=== PATIENT | female | born 1985 | race American Indian/Alaskan Native ===

== ENCOUNTER 2025-04-11 11:32 | Emergency (ER) | payer MEDICAID, SELFPAY ==
--- NOTE | 2025-04-11 11:38 | XR_ITS ---
EXAMINATION: Ankle, right 3 views . Technique: Ankle AP, oblique, lateral 3 views Date and time of exam: April 11, 2025 1203 hours INDICATIONS: Ankle injury 2 days ago with ankle pain. FINDINGS: Ankle dislocation, distal articulating surface of the tibia displaced anteriorly relative to the dome the talus Comminuted displaced angulated fibular shaft fracture, at least 7 mm offset at the main fracture site Posterior malleolar fracture which is poorly visualized Talus calcaneus navicular and cuboid appear intact IMPRESSION: Ankle fractures with dislocation, consider CT scan ankle follow-up to assess full extent of ankle fractures
[2025-04-11 12:00] VITALS: BP 137/86; PULSE 88; RESP 18; TEMP 36.8; O2SAT 97; BMI 33.5
--- NOTE | 2025-04-11 13:28 | PD.EDANKLE ---
Lower Extremity Injury RME/HPI General Chief Complaint: Ankle/Foot Injury Stated Complaint: Rolled right ankle last night Time Seen by Provider: 04/11/25 11:47 Arrival date/time: 04/11/25 11:32 Limitations: no limitations RME / HPI RME / HPI Narrative: 39 year old female with no stated medical history presents to the ED for evaluation of right ankle pain following a ground level fall occurring last night at 10:00 PM. States he was walking in her yard when she rolled her ankle, followed by pain that has remained constant since. Described as sharp in sensation that is located most to the ankle area that shoots up with movements. No other injuries or complaints reported. Related Data Home Medications ?Medication ?Instructions ?Recorded ?Confirmed acetaminophen 325 mg capsule 500 mg PO Q6H pain 10/24/19 11/06/19 (Tylenol) diphenhydramine HCl 25 mg capsule 1 tab PO HS 10/24/19 11/06/19 (Benadryl) famotidine 20 mg tablet (Pepcid) 1 tab PO QDAY 10/24/19 11/06/19 vitamins-iron fumarate 27 1 tab PO QDAY 10/24/19 11/06/19 mg iron-folic acid 0.8 mg tablet ( Vitamin) Previous Rx's ?Medication ?Instructions ?Recorded hydrocodone 5 mg-acetaminophen 325 1 tab PO Q6H PRN pain #7 tabs 02/16/20 mg tablet ([place]) hydrocodone 5 mg-acetaminophen 325 1 tab PO Q6H PRN pain #7 tabs 02/16/20 mg tablet ([place]) ibuprofen 600 mg tablet 600 mg PO Q6H PRN pain #20 tabs 11/14/19 hydrocodone 5 mg-acetaminophen 325 1 tab PO Q6H PRN pain 4 days #14 04/11/25 mg tablet tabs Allergies Allergy/AdvReac Type Severity Reaction Status Date / Time Cephalosporins Allergy Intermediate Hives Verified 04/11/25 11:36 Sulfa (Sulfonamide Allergy Intermediate Hives Verified 04/11/25 11:36 Antibiotics) codeine AdvReac Mild HIVES Verified 04/11/25 11:36 Review of Systems Review of Systems Systems Reviewed: All systems reviewed, normal except as documented Past Medical History Past Medical History NEUROLOGIC: Negative Neurological Disorders CARDIAC: Negative Cardiac Disorders GENITOURINARY: Negative Genitourinary Disorders or Renal Disease MUSCULOSKELETAL: Negative Musculoskeletal Disorders ENDOCRINE: Negative Endocrine Disorders Family History FAMILY HISTORY: Negative Family Psychiatric Problems, Family Respiratory Disorders, Family Cardiac Disorders, Family Gastrointestinal Problems, Family Cancer, Family Surgery or Family Anesthesia Reaction Surgical History SURGICAL: Positive Section (4) Social History SMOKING STATUS: Never smoker ED Exam General Limitations: Present no limitations General appearance: Present alert and in no apparent distress Head Head exam: Present atraumatic, normocephalic and normal inspection Eye Eye exam: Present normal appearance, PERRL and EOMI ENT ENT exam: Present normal exam, normal oropharynx and mucous membranes moist Neck Neck exam: Present normal inspection, full ROM and trachea midline Chest Chest inspection: Present normal inspection and symmetric chest wall rise Respiratory Respiratory exam: Present normal lung sounds bilaterally Cardiovascular Cardiovascular exam: Present regular rate, normal rhythm and normal heart sounds Abdominal Exam Abdominal exam: Present soft and normal bowel sounds Extremities Exam Extremities exam: Present other (Deformity and swelling to the right ankle and foot with ecchymosis, normal sensation and normal motor, capillary refill on the right foot is 3-4 seconds, capillary refill on the left foot is <2 seconds) Back Exam Back exam: Present normal inspection and full ROM Neurological Exam Neurological exam: Present alert, oriented X3 and CN II-XII intact Psychiatric Psychiatric exam: Present normal affect and normal mood Skin Skin exam: Present warm, dry, intact and normal color Course Course Course Narrative: 1330: Ortho Dr. Gonzalez called and no answer. Left a voicemail. 1428: Ortho Dr. Gonzalez at bedside to perform ankle reduction. Please refer to his progress note for procedure details. Quality Measures none Orders Category Date Time Status Quality Control Auditor NOW Care 04/11/25 13:34 Active Conscious Sedation [RT Stand By for Procedure] NOW Care 04/11/25 14:09 Active Continuous Pulse Oximetry NOW Care 04/11/25 13:34 Completed IV [Insert IV] NOW Care 04/11/25 13:[address] ankle RT wo con Stat Exams 04/11/25 13:36 Completed XR ankle RT 2V Stat Exams 04/11/25 14:14 Completed XR ankle comp RT min 3V Stat Exams 04/11/25 11:38 Completed XR ankle comp RT min 3V Stat Exams 04/11/25 14:38 Completed CBC Stat Lab 04/11/25 13:41 Completed CMP [Comprehensive Metabolic Panel] Stat Lab 04/11/25 13:41 Completed INR [Prothrombin Time with INR] Stat Lab 04/11/25 13:41 Completed PTT [Partial Thromboplastin Time] Stat Lab 04/11/25 13:41 Completed Type and Screen Stat Lab 04/11/25 13:41 Completed Acetaminophen Ivpb [Ofirmev Inj] Med 04/11/25 13:34 Discontinued 1,000 mg in 100 ml IV NOW Ondansetron Inj [Zofran Inj] Med 04/11/25 13:34 Discontinued 4 mg IVP X1 ONE Propofol Inj [Diprivan Inj] Med 04/11/25 14:29 Discontinued 100 mg IV X1 ONE Propofol Inj [Diprivan Inj] Med 04/11/25 14:09 Discontinued 171 mg IV X1 ONE Propofol Inj [Diprivan Inj] Med 04/11/25 14:18 Discontinued 200 mg IV .STK-MED ONE Propofol Inj [Diprivan Inj] Med 04/11/25 14:29 Discontinued 200 mg IV X1 ONE Sodium Chloride 0.9% 1000 ml [Ns] 1,000 ml Med 04/11/25 14:10 Discontinued IV 999 mls/hr fentaNYL INJ [Sublimaze Inj] Med 04/11/25 13:34 Discontinued 50 mcg IVP X1 ONE Vital Signs Vital signs: Vital Signs Temperature 98.2 F 04/11/25 12:00 Pulse Rate 88 04/11/25 12:00 Respiratory Rate 18 04/11/25 12:00 Blood Pressure 137/86 H 04/11/25 12:00 Pulse Oximetry (%) 97 04/11/25 12:00 Oxygen Delivery Method Room Air 04/11/25 12:00 Pulse ox is 97% on room air which is adequate. Extremity Injury, Lower MDM Narrative MDM Narrative:: Penny Murphy am scribing for and in the presence of Dr. Lu. Patient data External records reviewed:: [facility] previous records (I reviewed H&P on 11/12/2019) Clinical information provided by:: patient Social determinants that could affect healthcare access:: none Patient has the following chronic illnesses:: None How is presenting disease/condition affected by chronic disease/condition?: no chronic disease Evaluation data The following diagnostics were reviewed and interpreted by me:: lab results and radiology exam(s) Lab and/or radiology exams considered but not ordered:: None Interpretation Summary: Ordering Physician: Luan Lu MD Date of Service: 04/11/25 Procedure(s): XR ankle comp RT min 3V Accession Number(s): [id number] cc: Alexander Mccann MD; CLARENCE COURTNEY; Luan Lu MD~ EXAMINATION: Ankle, right 3 views . Technique: Ankle AP, oblique, lateral 3 views Date and time of exam: April 11, 2025 1203 hours INDICATIONS: Ankle injury 2 days ago with ankle pain. FINDINGS: Ankle dislocation, distal articulating surface of the tibia displaced anteriorly relative to the dome the talus Comminuted displaced angulated fibular shaft fracture, at least 7 mm offset at the main fracture site Posterior malleolar fracture which is poorly visualized Talus calcaneus navicular and cuboid appear intact IMPRESSION: Ankle fractures with dislocation, consider CT scan ankle follow-up to assess full extent of ankle fractures Dictated By: Alexander Mccann MD Signed By: <Electronically signed by Alexander Mccann MD in OV> 04/11/25 1221 Medications / Prescriptions Medications or Prescriptions considered but not ordered:: None Medication administrations:: Medication Administration History Discontinued Medications Fentanyl Citrate (Fentanyl Cit Inj 50 Mcg/Ml Amp 2ml) 50 mcg IVP X1 ONE Stop: 04/11/25 13:35 Last Admin: 04/11/25 13:51 Dose: 50 mcg Documented By: MARY JO Acetaminophen (Ofirmev Inj) 1,000 mg in 100 mls @ 250 mls/hr IV NOW ONE Stop: 04/11/25 13:57 Last Infusion: 04/11/25 14:40 Dose: Infused Documented By: Admin: 04/11/25 13:51 Dose: 250 mls/hr Documented By: VG Sodium Chloride (Ns) 1,000 mls @ 999 mls/hr IV .Q1H1M ONE Stop: 04/11/25 15:10 Last Infusion: 04/11/25 15:38 Dose: Infused Documented By: Admin: 04/11/25 14:15 Dose: 999 mls/hr Documented By: VG Ondansetron HCl (Ondansetron Inj 2 Mg/Ml Inj 2 Ml) 4 mg IVP X1 ONE; Protocol Stop: 04/11/25 13:35 Last Admin: 04/11/25 13:50 Dose: 4 mg Documented By: VG Propofol (Propofol Inj 10 Mg/Ml Vial 20 Ml) 171 mg 2 mg/kg (171 mg) IV X1 ONE Stop: 04/11/25 14:10 Last Admin: 04/11/25 14:30 Dose: Not Given Documented By: VG Non-Admin Reason: Discontinued Propofol (Propofol Inj 10 Mg/Ml Vial 20 Ml) Confirm Administered Dose 200 mg IV .STK-MED ONE Stop: 04/11/25 14:19 Last Admin: 04/11/25 14:30 Dose: Not Given Documented By: VG Non-Admin Reason: Duplicate Medication on eMAR Propofol (Propofol Inj 10 Mg/Ml Vial 20 Ml) 200 mg IV X1 ONE Stop: 04/11/25 14:30 Last Admin: 04/11/25 14:20 Dose: 200 mg Documented By: VG Comments: MED PUSHED IN INCREMENTS BY DR. LU 85MG PUSHED 85MG PUSHED 30MG PUSHED Propofol (Propofol Inj 10 Mg/Ml Vial 20 Ml) 100 mg IV X1 ONE Stop: 04/11/25 14:30 Last Admin: 04/11/25 14:25 Dose: 100 mg Documented By: MARY JO Comments: MED PUSHED BY DR LU See above Consultations Consultation(s) initiated? (list below): Yes Consultation #1 (Physician, Specialty, Details): I spoke with ortho Dr. Gonzalez. Discussed HPI, pmhx, and radiology results. states he will come down and reduce the ankle in the ED. Time: 14:08 Diagnosis Most likely diagnosis given after review of the tests above:: Closed pilon fracture Admission Indicated Admission indicated?: not indicated Admission Request Was there a request for admission?: No Disposition Plan Disposition Plan: Discharge Discharge Attestation Discharge Attestation: The patient and all family members were given an opportunity to ask questions and understood the discharge instructions. Discharge instructions specifically effects, indications for sooner follow up or return to the emergency department, and the expected course of current diagnosis. Patient condition: Stable Discharge Plan Plan Patient Disposition: HOME (Self Care) Discharge Disposition comment: Stable for discharge home Patient condition on transfer: Stable Prescriptions/Referrals Prescriptions/Med Rec: New hydrocodone-acetaminophen 5-325 mg tablet 1 tab PO Q6H MDD 4 tabs PRN (Reason: pain) 4 Days Qty: 14 0RF No Action hydrocodone-acetaminophen [[place]] 5-325 mg tablet 1 tab PO Q6H MDD 4 PRN (Reason: pain) Qty: 7 0RF ibuprofen 600 mg tablet 600 mg PO Q6H MDD 6 PRN (Reason: pain) Qty: 20 0RF hydrocodone-acetaminophen [[place]] 5-325 mg tablet 1 tab PO Q6H MDD 4 PRN (Reason: pain) Qty: 7 0RF famotidine [Pepcid] 20 mg Tablet 1 tab PO QDAY diphenhydramine HCl [Benadryl] 25 mg Capsule 1 tab PO HS Vitamin 27 mg iron- 0.8 mg Tablet 1 tab PO QDAY acetaminophen [Tylenol] 325 mg Capsule 500 mg PO Q6H Referrals: [facility] fracture clinic [Other] - In 1 week ([email or web address] Right sided pilon fracture) [facility] [Provider Group] - In 1 week (Patient has a right pilon fracture. She needs referral to an orthopedic surgeon) Clarence Courtney PA-C [Primary Care Provider] - In 1 week Problem List Clinical Impression: Closed pilon fracture Patient/Caregiver Discharge Instructions Discharge Activity: activity as tolerated Education Materials: Pilon Fracture of the Ankle, ED Fracture, Lower Extremity Additional Instructions: You have a fracture called a pilon fracture of your right ankle. You will need to see a specialist, which is called an orthopedic surgeon. This is a bone surgeon. You have two options. You can either call the fresh fracture clinic in [place] and make a follow-up appointment. Your second option is you can go to your primary care doctor or the [facility] and ask for referral to an orthopedic surgeon. You cannot drive or operate heavy machinery after taking the hydrocodone/acetaminophen. This medicine is best taken before you go to bed. It may make you feel little dizzy Please return to the ER if you have any worsening or any further medical problems. Otherwise you should follow-up with your primary care doctor within the next several days Print Language: Argentine Stand Alone Forms: Sarah Award Info., Patient Portal Info Letter
--- NOTE | 2025-04-11 13:36 | XR_ITS ---
Examination: CT right ankle, without contrast. 2-D sagittal reconstructions. 2-D coronal reconstructions. 3-D reconstructions. Date and time of exam:April 11, 2025 1527 hours INDICATIONS: Patient fell today with into the ankle, ankle pain CTDI: vol (mGy):5.04 DLP: (mGycm):110 Technique: Multiple 1.25 mm axial sections of the right ankle without intravenous contrast have been obtained. 2-D sagittal and coronal reconstructions have been obtained. 3-D reconstructions have been obtained. Low dose protocols were performed. One or more of the following dose reduction techniques were used; automated exposure control, adjustment of the mA and/or KV according to patient size, use of iterative reconstruction technique. Findings: Comminuted fracture distal fibula, on the lateral view 9 mm separation of the main fracture fragments Fracture distal tibia extending to the articulating surface of the tibia, coronal image 43 with mildly displaced posterior malleolar fracture fragment, 24 mm Fractures off the distal lateral margin of the tibia, coronal image 34 through 30 with displaced fracture fragments Nondisplaced medial malleolar fracture, comminuted, coronal image 39 Mild widening at the tibiotalar joint IMPRESSION: Trimalleolar fractures as above
[2025-04-11] MEDS: ONDANSETRON INJ 2 MG/ML INJ 2 ML 4 MG IVP (13:50)
[2025-04-11] MEDS: fentaNYL CIT INJ 50 mCg/ML AMP 2ML IVP (13:51)
[2025-04-11] MEDS: ACETAMINOPHEN IVPB 1,000 MG/100 ML VIAL 250 MG IV (13:51)
[2025-04-11 13:53] VITALS: PULSE 89
[2025-04-11 13:55] LABS: Basophils # (Auto) 0.0 Thou/mm3 (0.0-0.2); Basophils % (Auto) 0 % (0-2.5); Eosinophils # (Auto) 0.0 Thou/mm3 (0.0-0.5); Eosinophils % (Auto) 0 % (0-10); Hematocrit 39.3 % (36.0-46.0); Hemoglobin 13.9 g/dL (12.0-16.0); Immature Granulocytes Auto 0.05 Thou/mm3 (0.00-0.00); Lymphocytes # (Auto) 1.2 Thou/mm3 (1.0-4.8); Lymphocytes % (Auto) 8 % (10-50); Mean Corpuscular HGB Conc 35.4 g/dl (31.0-37.0); Mean Corpuscular Hemoglobin 32.0 pg (25.0-35.0); Mean Corpuscular Volume 91 fL (80-100); Monocytes # (Auto) 0.9 Thou/mm3 (0.0-0.8); Monocytes % (Auto) 6 % (0-12); Neutrophils # (Auto) 13.5 Thou/mm3 (1.8-7.7); Neutrophils % (Auto) 86 % (37-80); Nucleated Red Blood Cell # 0.00 Thou/mm3 (0.00-0.00); Nucleated Red Blood Cell % 0 /100 WBC (0); Platelet Count 350 Thou/mm3 (140-440); RDW Standard Deviation 41.7 fL (36.4-46.3); Red Blood Count 4.34 Miln/mm3 (4.00-5.20); White Blood Count 15.7 Thou/mm3 (3.6-11.0)
--- NOTE | 2025-04-11 14:14 | XR_ITS ---
EXAMINATION: Ankle, right 2 views . Technique: AP lateral right ankle 2 views INDICATIONS: Post reduction ankle dislocation ankle fractures today FINDINGS: Successful reduction ankle dislocation Improved alignment fractures distal fibular shaft Improved alignment fractures distal tibia, the posterior malleolar fracture shows no significant displacement IMPRESSION: Successful reduction ankle dislocation Marked improvement in alignment ankle fractures
[2025-04-11] MEDS: SODIUM CHLORIDE 0.9% 1000 ML 1,000 ML 999 ML IV (14:15)
[2025-04-11 14:17] LABS: Alanine Aminotransferase 60 U/L (10-49); Albumin, Serum 4.7 gm/dL (3.5-5.0); Albumin/Globulin Ratio 1.5 (1.2-2.2); Alkaline Phosphatase 126 U/L (46-116); Anion Gap 12 (7-16); Aspartate Amino Transferase 33 U/L (0-34); BUN/Creatinine Ratio 9 Ratio (12-20); Bilirubin,Total 0.7 mg/dL (0.3-1.2); Blood Urea Nitrogen 7 mg/dL (9-23); Calcium 9.1 mg/dL (8.3-10.6); Calcium (Corrected) 9.1 mg/dL (8.5-10.1); Carbon Dioxide 23.4 mMol/L (20.0-31.0); Chloride 105 mMol/L (98-107); Creatinine (Component) 0.8 mg/dL (0.6-1.3); Estimated Creatinine Clearance 98.9 mL/min (>60); Globulin 3.2 gm/dL (2.3-3.5); Glucose 113 mg/dL (74-106); Osmolality,Calculated 278 (275-295); Potassium 4.2 mMol/L (3.4-5.1); Sodium 140 mMol/L (136-145); Total Protein 7.9 gm/dL (5.7-8.2); eGFR > 60 See Note
[2025-04-11 14:19] LABS: INR 1.0 (0.9-1.3); Partial Thromboplastin Time 29.1 Seconds (22.0-36.0); Prothrombin Time 11.4 Seconds (9.0-12.2)
[2025-04-11 14:20] VITALS: BP 131/94; PULSE 110; RESP 20; TEMP 36.6; O2SAT 97
[2025-04-11] MEDS: PROPOFOL INJ 10 MG/ML VIAL 20 ML 200 MG IV (14:20)
[2025-04-11] MEDS: PROPOFOL INJ 10 MG/ML VIAL 20 ML 100 MG IV (14:25)
[2025-04-11 14:35] VITALS: BP 138/86; PULSE 91; RESP 12; TEMP 36.7; O2SAT 97
[2025-04-11 14:36] VITALS: PULSE 86; RESP 18; O2SAT 97
--- NOTE | 2025-04-11 14:38 | XR_ITS ---
EXAMINATION: Ankle, right 3 views . Technique: Ankle AP, oblique, lateral 3 views Date and time of exam: April 11, 2025 1443 hours Comparison April 11, 2025 1203 hours INDICATIONS: Ankle dislocation and fractures today, post reduction today FINDINGS: Satisfactory alignment fractures distal fibular shaft and posterior malleolus Ankle dislocation has been reduced IMPRESSION: Satisfactory alignment
--- NOTE | 2025-04-11 14:43 | ESPR_ITS ---
Subjective Subjective Brief History: Ankle pain Narrative: Patient is a 39-year-old female who presented to the emergency room today with a ankle fracture dislocation. She was intoxicated. She does appear to have a intra-articular ankle fracture versus pilon equivalent. She does not recall exactly what happened last night. Initially, she reports that she tripped in the yard and later reports that she was intoxicated when this happened. She reports significant right ankle pain. Exam Vital Signs Temp Pulse Resp BP Pulse Ox O2 Del Method O2 Flow Rate 98.1 F 86 18 138/86 H 97 Room Air 3 04/11/25 14:35 04/11/25 14:36 04/11/25 14:36 04/11/25 14:35 04/11/25 14:36 04/11/25 14:35 04/11/25 14:36 Additional findings Additional findings: Patient is in no acute distress and is cooperative with the examination today. Patient has a normal mood and affect. She is lying in bed comfortably Breathing is nonlabored. In no respiratory distress. Bilateral extremities were evaluated and demonstrates sensation intact to light touch. Palpable pedal pulses are present. The right ankle is swollen. He is neurovascular intact. Positive DP PT pulses. She is able to dorsiflex and plantarflex her ankle and big toe. She has no pain with passive stretch of the big toe. Sensation is intact to light touch in the deep peroneal and superficial peroneal as well as tibial nerve distributions. Compartments are soft. Objective - Ortho Labs 04/11/25 13:41 04/11/25 13:41 Labs: Laboratory Results - last 24 hr 04/11/25 13:41 WBC 15.7 H RBC 4.34 Hgb 13.9 Hct 39.3 MCV 91 MCH 32.0 MCHC 35.4 RDW Std Deviation 41.7 Plt Count 350 Neut % (Auto) 86 H Lymph % (Auto) 8 L [place] % (Auto) 6 Eos % (Auto) 0 Baso % (Auto) 0 Neut # (Auto) 13.5 H Lymph # (Auto) 1.2 [place] # (Auto) 0.9 H Eos # (Auto) 0.0 Baso # (Auto) 0.0 Immature Gran # (Auto) 0.05 H Absolute Nucleated RBC 0.00 Immature Gran % 0 Nucleated RBC % 0 PT 11.4 INR 1.0 APTT 29.1 Sodium 140 Potassium 4.2 Chloride 105 Carbon Dioxide 23.4 Anion Gap 12 BUN 7 L Creatinine 0.8 Estim Creat Clear Calc 98.9 eGFR > 60 BUN/Creatinine Ratio 9 L Glucose 113 H Calculated Osmolality 278 Calcium 9.1 Corrected Calcium 9.1 Total Bilirubin 0.7 AST 33 ALT 60 H Alkaline Phosphatase 126 H Total Protein 7.9 Albumin 4.7 Globulin 3.2 Albumin/Globulin Ratio 1.5 Blood Bank Wristband ID Yes Assessment & Plan Diagnosis (1) Closed right ankle fracture: Status: Acute Assessment Additional comments: Patient is a 39-year-old female with a right ankle fracture with a large intra- articular component either a posterior malleolus or tibial plafond to equivalent. Her compartments are soft and she is neurovascularly intact. We reduced here in the emergency room today after discussing the risk and benefits. After adequate propofol, we provided an anterior translation force on the foot and then an audible clunk was heard. We used x-ray to confirm that there was an adequate reduction and a splint was applied. - Given that there is an adequate reduction, I think this can be managed outpatient. I would recommend a CT scan to see how big the posterior malleolus component is. This will likely need to be fixed. We discussed warning signs of compartment syndrome with the patient.
[2025-04-11 16:35] VITALS: BP 133/83; PULSE 91; RESP 14; TEMP 36.6; O2SAT 97
== END 2025-04-11 16:35 | disposition home or self-care (01) ==
PROVIDERS: Emergency Provider Emergency Medicine; PCP Physician Assistant
DX: S82.851A Displaced trimalleolar fracture of right lower leg, initial encounter for closed fracture (principal); W18.30XA Fall on same level, unspecified, initial encounter; Y93.01 Activity, walking, marching and hiking
CPT/HCPCS: 27818; 36415; 73600; 73610; 73700; 80053; 85025; 85610; 85730; 86850; 86900; 86901; 96361; 96365; 96375; 99284; J0131; J2405; J2704; J3010; J7030

== ENCOUNTER 2025-08-15 09:13 | Outpatient (RCR) | payer MEDICAID, SELFPAY ==
--- NOTE | 2025-08-15 09:44 | PT.OIERPT ---
PT OP Initial Eval Patient Information Outpatient Physical Therapy Treatment Date: 08/15/25 Visit Reasons: RT ANKLE PAIN Medical Diagnosis: R52 Treatment Dx #1: R ankle pain Treatment Dx #2: Decreased ROM R ankle Start of Care: 08/15/25 Date of Onset: 04/27/25 DOS Smoking Status Smoking Status: Never smoker Initial Assessment Subjective: Pt is 40 yr old female who slipped in her yard and sustained trimalleolar FX in March and had ORIF 04/27/25. She is ambulating without assistive device and can ambulate community distances with some soreness with grocery shopping. She reports decreased movement of the ankle. PMH: C-secions x5 Pt goal: to walk normal again Objective: R ankle AROM: DF: 3 deg PF; 45 deg Inversion: full Eversion: 8 deg Heel raise: 50% height Gait: unsymmetrical steps with R foot outtoeing, poor pushoff in terminal stance TTP: none of incision scar Sensation: diminished of dorsal and lateral foot Assessment: Pt presentation consistent with post op R ankle ORIF. Pt has decreased ankle ROM and strength and unsymmetrical gait pattern. Pt requires skilled therapy and has fair/good rehab potential to meet goals. Short Term and Correction Goals 1. Ind with HEP 2. Improved DF of R ankle to 8 deg and PF to full 3. Pt will ambulate with symmetrical gait pattern x community distances 4. Pt will B heel raise to full height x10 Treatment Plan ? 1. Manual therapy ? 2. Therex ? 3. Modalities as indicated, moist heat, ice, estim Frequency and Duration: 2x a week for 24 visits Certification Dates: 08/15/25 to 11/13/25 Procedure Charges OP PT Eval Mod Complex 30 minutes: Yes
== END 2025-08-28 23:59 | disposition home or self-care (01) ==
LOC: CPTX 09:13
PROVIDERS: PCP Physician Assistant Medical; Referring Provider Physician Assistant Medical; Visit Provider Physician Assistant Medical
DX: M25.571 Pain in right ankle and joints of right foot (principal); S82.851D Displaced trimalleolar fracture of right lower leg, subsequent encounter for closed fracture with routine healing; W18.40XD Slipping, tripping and stumbling without falling, unspecified, subsequent encounter
CPT/HCPCS: 97162